=== PATIENT | female | born 1965 | race Caucasian/White ===

== ENCOUNTER → 2020-07-08 | Outpatient (CLI) | payer OTHER ==
[~2020-07-08] MED LIST: ACET325T14 PO; AMIT10TA PO; GLAT20KI SQ; IBUP-1223 PO; OXYC5TAB2 PO; SENN-99 PO
== END | disposition home or self-care (01) ==
LOC: STAR 07:52
PROVIDERS: ATTEND Otolaryngology
DX: Z20.822 Contact with and (suspected) exposure to COVID-19 (principal)
CPT/HCPCS: U0003

== ENCOUNTER 2020-07-10 05:17 | Day surgery (SDC) | payer OTHER ==
[~2020-07-10] VITALS: Ht 170.2 cm; Wt 67.7 kg
[~2020-07-10 05:17] MED LIST changes: -ACET325T14 PO; -IBUP-1223 PO; -OXYC5TAB2 PO; -SENN-99 PO
[2020-07-10] MEDS ORDERED: LACTATED RINGERS 1,000 ML IV SCH (06:00)
[2020-07-10] MEDS ORDERED: CHLORHEXIDINE 15 ML UDC PO ONE (06:00)
[2020-07-10 06:04] VITALS: BP 128/85
[2020-07-10] MEDS ORDERED: EPINEPHRINE 1 MG/ML, 1ML ONE (06:15)
[2020-07-10] MEDS ORDERED: LIDOCAINE/PF 1%-EPI 1:200K, 30 ML ONE (06:16)
[2020-07-10] MEDS ORDERED: LIDOCAINE/PF 1%, 30ML ONE (06:16)
[2020-07-10] MEDS ORDERED: NEOSPORIN OINT, 15GM ONE (06:17)
[2020-07-10] MEDS ORDERED: MIDAZOLAM 1 MG/ML, 2ML ONE (06:48)
[2020-07-10] MEDS ORDERED: FENTANYL PF 250 MCG/5ML ONE (06:49)
[2020-07-10] MEDS ORDERED: KETOROLAC 30 MG/1 ML ONE (07:14)
[2020-07-10] MEDS ORDERED: SUCCINYLCHOLINE 20 MG/ML, 10ML ONE (07:14)
[2020-07-10] MEDS ORDERED: LIDOCAINE-MPF 2% ,5ML ONE (08:20)
[2020-07-10] MEDS ORDERED: ROCURONIUM 10MG/ML,5ML ONE (08:22)
[2020-07-10] MEDS ORDERED: PROPOFOL 10 MG/ML, 20ML ONE (08:22)
[2020-07-10] MEDS ORDERED: ONDANSETRON 2MG/ML, 2ML ONE (08:22)
[2020-07-10] MEDS ORDERED: DEXAMETHASONE 4 MG/ML, 1ML ONE (08:22)
[2020-07-10] MEDS ORDERED: CEFAZOLIN 1,000 MG ONE (08:22)
[2020-07-10] MEDS ORDERED: OXYC5TAB2 PO (09:16)
[2020-07-10] MEDS ORDERED: ACET325T14 PO (09:16)
[2020-07-10] MEDS ORDERED: SENN-99 PO (09:16)
[2020-07-10] MEDS ORDERED: IBUP-1223 PO (09:16)
== END 2020-07-10 11:10 | disposition home or self-care (01) ==
LOC: OUT 05:17
PROVIDERS: ATTEND Otolaryngology
DX: K11.8 Other diseases of salivary glands (principal); K11.6 Mucocele of salivary gland; K11.21 Acute sialoadenitis; K11.23 Chronic sialoadenitis; G35 Multiple sclerosis; Z79.899 Other long term (current) drug therapy; Z88.2 Allergy status to sulfonamides; Z91.013 Allergy to seafood
CPT/HCPCS: 42410; 88307; 88331; J0171; J0330; J0690; J1100; J1885; J2250; J2405; J2704; J3010; J7120; 88305